=== PATIENT | female | born 1980 ===

== ENCOUNTER 2020-04-13 17:00 | Outpatient (CLI) | payer BC | END 2020-04-13 17:01 | disposition home or self-care (01) | LOC: SLEEPLAB 17:00 | PROVIDERS: ATTEND Family Medicine | DX: G47.33 Obstructive sleep apnea (adult) (pediatric) (principal); G47.10 Hypersomnia, unspecified; R53.83 Other fatigue; R40.0 Somnolence; G31.84 Mild cognitive impairment of uncertain or unknown etiology; R06.83 Snoring; F32.9 Major depressive disorder, single episode, unspecified; F41.9 Anxiety disorder, unspecified | CPT/HCPCS: 95806 ==